=== PATIENT | female | born 1960 | race Hispanic/Latino ===

== ENCOUNTER 2021-08-04 17:57 | Outpatient (CLI) | payer OTHER | END 2021-08-04 17:58 | disposition home or self-care (01) | LOC: CSHRAD 17:57 | PROVIDERS: ATTEND Psychiatry & Neurology Neurology | DX: M54.50 Low back pain, unspecified (principal); M43.16 Spondylolisthesis, lumbar region; M47.816 Spondylosis without myelopathy or radiculopathy, lumbar region; M47.817 Spondylosis without myelopathy or radiculopathy, lumbosacral region | CPT/HCPCS: 72100 ==